=== PATIENT | male | born 1965 | race Two or more races ===

== ENCOUNTER 2022-04-30 08:00 | Outpatient (CLI) | payer OTHER ==
[~2022-04-30 08:00] MED LIST: COZAAR100 MG; TUSSIN DM 400-1 EACH PO; ZITHROMAX500 MG PO
== END 2022-04-30 08:12 | disposition home or self-care (01) ==
LOC: SONOGRAMA 08:00
PROVIDERS: ATTEND Specialist
DX: R97.20 Elevated prostate specific antigen [PSA] (principal); N40.3 Nodular prostate with lower urinary tract symptoms